=== PATIENT | female | born 1970 | race Caucasian/White ===

== ENCOUNTER 2019-01-06 15:11 | Emergency (ER) | payer SELFPAY ==
[2019-01-06 15:12] VITALS: BP 137/88; PULSE 78; RESP 18; TEMP 35.8; O2SAT 100; BMI 27.4
--- NOTE | 2019-01-06 15:24 | EKG12_ITS ---
Test Reason : CP Blood Pressure : / mmHG Vent. Rate : 069 BPM Atrial Rate : 069 BPM P-R Int : 156 ms QRS Dur : 090 ms QT Int : 384 ms P-R-T Axes : 035 041 039 degrees QTc Int : 411 ms Normal sinus rhythm Normal ECG Confirmed by JAY BURTON, LORRAINE ([id number]), editor & co founder GERBER CURIEL ([id number] on 01/10/2019 10:50:01 AM Referred By: EDWIN/JOSE MANUEL Confirmed By:LORRAINE THOMPSON MD
--- NOTE | 2019-01-06 15:30 | RAD_ITS ---
STUDY: X-RAY CHEST REASON FOR EXAM: Female, 48 years old. Chest pain. TECHNIQUE: Single AP portable view of the chest. COMPARISON: Comparison is made with prior study dated March 18, 2011. FINDINGS: The lungs are clear and expanded. There is no demonstrated pleural abnormality. Normal size heart. Normal mediastinum and román. Normal visualized pulmonary arteries. Normal visualized aortic arch and descending thoracic aorta. Normal visualized thoracic spine. Normal visualized ribs, clavicles, and shoulders. There is no demonstrated abnormality of the visualized soft tissue structures of the upper abdomen. RAD/Chest 1 View (Portable) IMPRESSION: Normal x-ray examination of the chest. Electronically Signed: Ethan Whitten MD at 15:44 EST , Service support ,
[2019-01-06 15:36] LABS: Absolute Lymphocyte Count 2.76 X10^3/ul (0.83-4.51); Basophil# 0.03 X10^3/uL; Basophil% 0.4 % (0-1); Eosinophil# 0.03 X10^3/uL; Eosinophils% 0.4 % (0-5); Hematocrit 48.5 % (37-47); Hemoglobin 15.9 g/dl (12.0-15.0); Lymphocyte # 2.76 X10^3/ul (4.0); Lymphocyte % 33.7 % (19-41); Mean Corp Hgb Conc 32.8 g/gl (32-36); Mean Corpuscular Hgb 31.5 pg (27.0-32.0); Mean Platelet Vol. 10.8 fl (6.2-12.0); Monocyte# 0.35 X10^3/uL; Monocyte% 4.3 % (0-10); Neutrophil # 5.02 X10^3/uL (2.7-7.7); Neutrophil % 61.1 % (47-70); Platelet Count 271 K/mm3 (150-450); RBC Distribution Width CV 13.8 % (11.6-14.6); RBC Distribution Width SD 48.3 fl (35.1-43.9); Red Blood Count 5.05 M/mm3 (4.2-5.4); White Blood Count 8.2 K/mm3 (4.4-11.0)
[2019-01-06 15:37] LABS: POSITIVE COUNT NO; POSITIVE DIFFERENTIAL NO; POSITIVE MORPHOLOGY NO
[2019-01-06 15:51] LABS: Anion Gap 8 (5-15); BUN 12 mg/dL (7-18); BUN/Creat Ratio 17.3 RATIO (10-20); Calcium,Total 9.2 mg/dL (8.5-10.1); Chloride 106 mmol/L (98-107); EST Glomerular Filtration Rate 95 mL/min (>60); Est Glom Filt Rate - Afr Amer 115 mL/min (>60); Estimated Creatinine Clearance 83.03 ml/min; Glucose 97 mg/dL (74-106); Potassium 4.1 mmol/L (3.5-5.1); Sodium Level 142 mmol/L (136-145)
--- NOTE | 2019-01-06 16:07 | ED.VISSUMM ---
- ER Visit Summary Date of Service: 01/06/19 Chief Complaint: Chest pain History of Present Illness: The patient is a 48 F who has chest pain. Been there for a week. She states it is intermittent. It is in the left parasternal area. It is dull and aching. Nothing makes it better or worse. Not related with exertion. She has had nausea without vomiting. No shortness of breath. She has never had this before. She states she did have a coronary catheterization 5 years ago for pain and it was clean. She has no other cardiac risk factors except for smoking. She does not take a daily aspirin. Physical Examination: Vital signs reviewed. HEENT exam unremarkable. Heart is regular rate and rhythm without murmurs. Lungs are clear to auscultation. Abdomen is soft and nontender. Extremities reveal no edema. Peripheral pulses are equal. Skin exam normal. Neurologic exam normal. Test Results: EKG is normal sinus rhythm with rate of 69. No ST changes. Her studies are normal except for hemoglobin of 15.9 Emergency Department Course and Treatment: The patient was given aspirin. Her BRYN score is 0. She is pain-free at this time. I do not feel she requires any further evaluation. She will need to follow-up with her PCP as an outpatient. Treatment Plan: [] Disposition: Discharge Impression: Chest pain This note was generated with [email or web address] dictation software. It may contain incorrect words, spelling, and punctuation that were not noted in review of the chart prior to signing ED Disposition - Plan for ED Patient: Referrals: Ab Galeano MD [Primary Care Provider] -
--- NOTE | 2019-01-06 16:16 | ED.DEP ---
ED Disposition - Plan for ED Patient: Disposition: Home or Assisted Living Instructions: ED Chest Pain NonCardiac Referrals: Ab Galeano MD [Primary Care Provider] -
[2019-01-06 16:17] VITALS: BP 113/58; PULSE 68; RESP 16; O2SAT 95
== END 2019-01-06 16:27 | disposition home or self-care (01) ==
PROVIDERS: Emergency Provider Emergency Medicine; Family Provider Family Medicine; PCP Family Medicine
DX: R07.9 Chest pain, unspecified (principal); R11.0 Nausea; F17.200 Nicotine dependence, unspecified, uncomplicated; Z79.899 Other long term (current) drug therapy
CPT/HCPCS: 71045; 80048; 84484; 85025; 93005; 99284